=== PATIENT | female | born 1990 | race Hispanic/Latino ===

== ENCOUNTER 2023-12-16 00:26 | Observation (INO) | payer BC, OTHER ==
[2023-12-16 00:43] VITALS: BMI 27.1
[2023-12-16] MEDS ORDERED: hydrALAZINE 20 MG/ML VIAL SLOW IVP PRN (01:00)
[2023-12-16] MEDS ORDERED: Lactated Ringer's 1,000 ML IV SCH (01:45)
[2023-12-16 02:28] LABS: #Basophils 0.03 10x3/uL (0.0-0.2); #Eosinphils 0.13 10x3/uL (0.0-0.5); #Monocytes 0.72 10x3/uL (0.0-1.1); #Neutrophils 7.15 10x3/uL (1.5-8.4); %Basophils 0.3 % (0.0-2.0); %Eosinophils 1.3 % (0.0-6.0); %Monocytes 6.9 % (0.0-10.0); %Neutrophils 68.9 % (40.0-75.0); Hematocrit 30.1 % (34.9-44.5); Hemoglobin 10.2 g/dL (12.0-15.5); Mean Corpuscular HGB CONC 33.9 g/dL (32.0-36.0); Mean Corpuscular Hemoglobin 29.3 pg (27.0-33.0); Mean Corpuscular Volume 86.5 fL (81.6-98.3); Mean Platelet Volume 9.2 fL (7.4-10.4); Platelet Count 318 10x3/uL (150-450); RBC Distribution Width 12.4 % (11.5-14.5); Red Blood Cell (RBC) Count 3.48 10x6/uL (3.90-5.03); White Blood Cell (WBC) Count 10.4 10x3/uL (3.5-10.5)
[2023-12-16 02:42] LABS: D-Dimer Test 0.48 mcg/mL (0.19-0.50); INR-International Normal Ratio 0.9; PTT 27.3 sec (22.0-33.0); Prothrombin Time 10.3 sec (9.5-12.1)
[2023-12-16 02:44] LABS: ALT (SGPT) 7 U/L (8-55); AST (SGOT) 8 U/L (5-34); Albumin 2.6 g/dL (3.5-5.0); Alkaline Phosphatase 91 U/L (40-110); Anion Gap 13 mmol/L (10-20); BUN (Urea Nitrogen) 6 mg/dL (7.0-18.7); Bilirubin, Total 0.2 mg/dL (0.2-1.2); Calc. Creatinine Clearance 149 mL/min (70-130); Calcium 8.7 mg/dL (7.8-10.44); Carbon Dioxide 20 mmol/L (22-29); Chloride 106 mmol/L (98-107); Estimated GFR 123; Globulin 3.4 g/dL (2.4-3.5); Glucose 84 mg/dL (70-105); Potassium 3.4 mmol/L (3.5-5.1); Sodium 136 mmol/L (136-145)
[2023-12-16] MEDS: metroNIDAZOLE 500 MG TAB PO SCH ×2 (05:10→16:29)
[2023-12-16 07:41] LABS: Bilirubin Neg (Negative); Blood, Urine 25 (Negative); Clarity Clear (Clear); Glucose, Urine (Dipstick) Normal (Negative); Ketone, Urine 5 mg/dL (Negative); Leukocyte 100 (Negative); Nitrite Negative (Negative); Protein, Urine (Dipstick) Negative (Neg-Trace); Specific Gravity, Urine 1.005 (1.005-1.030); Urobilinogen Normal mg/dL (Less than 2)
[2023-12-16 07:46] LABS: Amphetamine Not Detected (NotDetected); Barbiturates Screen Not Detected (NotDetected); Benzodiazepine Screen Not Detected (NotDetected); Cocaine Metabolite Screen Not Detected (NotDetected); Methadone Not Detected (NotDetected); Methamphetamine Not Detected (NotDetected); Opiate Screen Not Detected (NotDetected); Oxycodone Screen Not Detected (NotDetected); Phencyclidine (PCP) Not Detected (NotDetected); THC/Cannabinoid Screen Not Detected (NotDetected); Tricyclic Screen Not Detected (NotDetected)
[2023-12-16 07:55] LABS: Bacteria/HPF 2+ HPF (None Seen); CAUTI Indications for Culture Pregnancy; RBC/HPF 0-3 HPF (0-3)
[2023-12-16 07:56] LABS: Urine Culture Reflex Yes Yes
[2023-12-16] MEDS ORDERED: Ondansetron PF 4 MG/2 ML Vial IVP PRN (08:23)
[2023-12-16] MEDS ORDERED: Promethazine HCl 25 MG/ML VIAL IM PRN (08:23)
[2023-12-16] MEDS: Betamet Acet/Betamet Na Ph 30 MG/5 ML VIAL IM SCH (15:14)
[2023-12-16] MEDS: Acetaminophen 500 MG TAB PO SCH (19:23)
[2023-12-17 00:04] LABS: Chlamydia by PCR, Vaginal Swab Not Detected (NotDetected); GC by PCR, Vaginal Swab Not Detected (NotDetected)
[2023-12-17 04:38] LABS: Hematocrit 32.9 % (34.9-44.5); Hemoglobin 11.1 g/dL (12.0-15.5)
[2023-12-17 14:11] VITALS: BP 103/58; TEMP 98.4
== END 2023-12-17 15:35 | disposition home health service (06) ==
LOC: CSHLD/OP 00:26 → CSHLD 08:43 → CSHANTE 11:36
PROVIDERS: ADMIT Student in an Organized Health Care Education/Training Program; ATTEND Student in an Organized Health Care Education/Training Program
DX: O46.92 Antepartum hemorrhage, unspecified, second trimester (principal); O99.342 Other mental disorders complicating pregnancy, second trimester; F41.9 Anxiety disorder, unspecified; F32.A Depression, unspecified; O98.812 Other maternal infectious and parasitic diseases complicating pregnancy, second trimester; B95.1 Streptococcus, group B, as the cause of diseases classified elsewhere; O99.891 Other specified diseases and conditions complicating pregnancy; R10.9 Unspecified abdominal pain; B37.31 Acute candidiasis of vulva and vagina; O99.012 Anemia complicating pregnancy, second trimester; O99.282 Endocrine, nutritional and metabolic diseases complicating pregnancy, second trimester; E87.6 Hypokalemia; E86.0 Dehydration; Z3A.27 27 weeks gestation of pregnancy
CPT/HCPCS: 36415; 76815; 76817; 80053; 80306; 81001; 85014; 85018; 85025; 85049; 85300; 85362; 85384; 85610; 85730; 87086; 87480; 87491; 87510; 87591; 87660; 96372; 99285; G0378; J0702